=== PATIENT | female | born 1950 | race Caucasian/White ===

== ENCOUNTER 2016-07-14 21:58 | Emergency (ER) | payer OTHER ==
[~2016-07-14] VITALS: Ht 157.5 cm; Wt 43.7 kg
[~2016-07-14 21:58] MED LIST: ADVAIR 100/501 DISK IH; ASPIR-LOW81 MG PO; BACTRIM,SEPT1 TABLET PO; CEFTIN500 MG PO; CLONAZEPAM0.5 MG PO; LO-DOSE ASPIRIN81 M1 PO; NICOTINE PATCH1 EAC2 TD; NITROSTAT0.4 MG SL; PROAIR HFA8.5 GM IH; SIMVASTATIN20 MG PO; TOPROL XL25 MG PO; TYLENOL EXTRA500 MG PO
[2016-07-14 22:02] VITALS: BP 134/79
[2016-07-14 23:26] LABS: ADD MIUA? NO; BILIRUBIN NEGATIVE; BLOOD NEGATIVE; COLOR COLORLESS ((YELLOW)); GLUCOSE (STRIP) NEGATIVE; KETONES NEGATIVE; LEUKOCYTES NEGATIVE; NITRITE NEGATIVE; PROTEIN (STRIP) NEGATIVE; SPECIFIC GRAVITY 1.003 (1.000-1.030); UCUL ADDED? NO; UROBILINOGEN 0.2 MG/DL (0.2-1.0)
[2016-07-14 23:31] LABS: HEMATOCRIT 43.3 % (36.0-46.0); MCH 29.9 PG (29.0-34.0); MCHC 33.5 G/DL (30.0-36.0); MCV 89.3 FL (83-99); MEAN PLAT.VOLUME 10.7 uM^3 (9.5-12.4); PLATELET COUNT 286 K/uL (156-360); RBC DIS.WIDTH-CV 12.6 % (11.8-14.6); RBC DIS.WIDTH-SD 41.3 % (39-53); RED BLOOD COUNT 4.85 M/uL (3.80-5.20); WHITE BLOOD COUNT 8.4 K/uL (4.1-10.2)
[2016-07-14 23:44] LABS: CHLORIDE 106 mEq/L (99-109); POTASSIUM 3.8 mEq/L (3.7-5.4); SODIUM 139 mEq/L (136-147)
[2016-07-14 23:45] LABS: GLUCOSE 81 mg/dL (70-99)
[2016-07-14 23:47] LABS: ANION GAP 9 MEQ/L (2-14)
[2016-07-14 23:49] LABS: GFR ESTIMATE (CALCULATED) > 59 mL/min/
[2016-07-14 23:50] LABS: UREA NITROGEN (BUN) 11 mg/dL (9-23)
[2016-07-14 23:55] LABS: TROP-I INTERPRETATION NEGATIVE; TROPONIN-I < 0.01 ng/mL (0.0-0.30)
== END 2016-07-15 01:12 | disposition left against medical advice (07) ==
LOC: EME → EDBD 21:58 → EME 07-15 01:12
PROVIDERS: Emergency Medicine
PROC: 09QKXZZ Repair Nasal Mucosa and Soft Tissue, External Approach (ICD-10-PCS; principal; 2016-07-14)
DX: S00.83XA Contusion of other part of head, initial encounter (principal); S02.2XXA Fracture of nasal bones, initial encounter for closed fracture; S01.21XA Laceration without foreign body of nose, initial encounter; S40.811A Abrasion of right upper arm, initial encounter; S40.021A Contusion of right upper arm, initial encounter; M54.2 Cervicalgia; W18.39XA Other fall on same level, initial encounter; R42 Dizziness and giddiness; J44.9 Chronic obstructive pulmonary disease, unspecified; F17.200 Nicotine dependence, unspecified, uncomplicated
CPT/HCPCS: 70450; 70486; 72125; 80048; 81003; 84484; 85027; 93005; 99281; 99284

== ENCOUNTER 2017-03-23 22:57 | Emergency (ER) | payer OTHER ==
[~2017-03-23] VITALS: Ht 160 cm; Wt 41.0 kg
[2017-03-23 23:47] LABS: BASOPHIL (%) 0.2 % (0-1); EOSINOPHIL (%) 1.3 % (0-5); EOSINOPHIL COUNT 0.1 K/uL (0-0.3); HEMATOCRIT 42.3 % (36.0-46.0); HEMOGLOBIN 14.5 G/DL (11.9-15.5); IMMATURE GRANULOCYTE (%) 0.1 % (0.0-0.7); LYMPHOCYTE (%) 37.6 % (15-42); LYMPHOCYTE COUNT 3.3 K/uL (1.0-2.8); MCH 30.5 PG (29.0-34.0); MCHC 34.3 G/DL (30.0-36.0); MCV 89.1 FL (83-99); MONOCYTE COUNT 0.5 K/uL (0-0.8); NEUTROPHIL (%) 54.8 % (45-76); NEUTROPHIL COUNT 4.8 K/uL (1.8-6.4); PLATELET COUNT 276 K/uL (156-360); RBC DIS.WIDTH-CV 12.6 % (11.8-14.6); RBC DIS.WIDTH-SD 41.4 % (39-53); RED BLOOD COUNT 4.75 M/uL (3.80-5.20); WHITE BLOOD COUNT 8.8 K/uL (4.1-10.2)
[2017-03-23 23:57] LABS: ALBUMIN 3.8 g/dL (3.2-4.8); CHLORIDE 105 mEq/L (99-109); POTASSIUM 4.1 mEq/L (3.7-5.4); SODIUM 140 mEq/L (136-147)
[2017-03-23 23:59] LABS: GLUCOSE 74 mg/dL (70-99); TOTAL PROTEIN 6.5 g/dL (6.4-8.3)
[2017-03-24 00:01] LABS: TOTAL BILIRUBIN 0.4 mg/dL (0.0-1.0)
[2017-03-24 00:02] LABS: SERUM ETHYL ALCOHOL 210 mg/dL
[2017-03-24 00:03] LABS: ALKALINE PHOSPHATASE 67 IU/L (3-129); CREATININE 0.6 mg/dL (0.6-1.3); GFR ESTIMATE (CALCULATED) > 59 mL/min/
[2017-03-24 00:04] LABS: UREA NITROGEN (BUN) 7 mg/dL (9-23)
[2017-03-24 00:05] LABS: AST (GOT) 47 IU/L (2-34)
[2017-03-24 00:06] LABS: ALT (GPT) 45 IU/L (3-49)
[2017-03-24 00:07] LABS: TROP-I INTERPRETATION NEGATIVE; TROPONIN-I < 0.01 ng/mL (0.0-0.30)
[2017-03-24 00:43] LABS: APPEARANCE CLEAR ((CLEAR)); BILIRUBIN NEGATIVE; BLOOD NEGATIVE; COLOR COLORLESS ((YELLOW)); GLUCOSE (STRIP) NEGATIVE; KETONES NEGATIVE; LEUKOCYTES NEGATIVE; NITRITE NEGATIVE; PROTEIN (STRIP) NEGATIVE; SPECIFIC GRAVITY 1.003 (1.000-1.030); UROBILINOGEN 0.2 MG/DL (0.2-1.0)
[2017-03-24 00:51] LABS: AMPHETAMINE NEGATIVE (500 ng/mL); BARBITURATES NEGATIVE (200 ng/mL); BENZODIAZEPINES NEGATIVE (150 ng/mL); BUPRENORPHINE NEGATIVE (10 ng/mL); COCAINE NEGATIVE (150 ng/mL); METHADONE NEGATIVE (200 ng/mL); METHAMPHETAMINE NEGATIVE (500 ng/mL); OPIATES (MORPHINE) NEGATIVE (100 ng/mL); OXYCODONE NEGATIVE (100 ng/mL); PHENCYCLIDINE NEGATIVE (25 ng/mL); PROPOXYPHENE NEGATIVE (300 ng/mL); THC CANNABINOIDS NEGATIVE (50 ng/mL); TRICYCLIC ANTIDEPRESSANTS NEGATIVE (300 ng/mL)
[2017-03-24] MEDS ORDERED: NORCO 5/3251 TABLET PO (01:59)
[2017-03-24 02:10] VITALS: BP 102/66
== END 2017-03-24 02:39 | disposition home or self-care (01) ==
LOC: EME → EDBD 22:57 → EME 03-24 02:39
PROVIDERS: Emergency Medicine
DX: S16.1XXA Strain of muscle, fascia and tendon at neck level, initial encounter (principal); S20.229A Contusion of unspecified back wall of thorax, initial encounter; S06.9X9A Unspecified intracranial injury with loss of consciousness of unspecified duration, initial encounter; M25.522 Pain in left elbow; M25.531 Pain in right wrist; W18.30XA Fall on same level, unspecified, initial encounter; F10.129 Alcohol abuse with intoxication, unspecified; Y90.7 Blood alcohol level of 200-239 mg/100 ml; J44.9 Chronic obstructive pulmonary disease, unspecified; F17.200 Nicotine dependence, unspecified, uncomplicated
CPT/HCPCS: 70450; 71046; 72125; 72128; 72131; 73080; 73110; 80053; 81003; 84484; 85025; 93005; 99281; 99284; G0480

== ENCOUNTER 2017-05-07 14:51 | Inpatient (IN) | payer OTHER ==
[~2017-05-07] VITALS: Ht 160 cm; Wt 39.8 kg
[~2017-05-07 14:51] MED LIST changes: +NORCO 5/3251 TABLET PO
[2017-05-07 15:49] LABS: HEMATOCRIT 40.2 % (36.0-46.0); HEMOGLOBIN 13.8 G/DL (11.9-15.5); MCH 30.9 PG (29.0-34.0); MCHC 34.3 G/DL (30.0-36.0); MCV 89.9 FL (83-99); PLATELET COUNT 163 K/uL (156-360); RBC DIS.WIDTH-CV 12.8 % (11.8-14.6); RBC DIS.WIDTH-SD 42.5 % (39-53); RED BLOOD COUNT 4.47 M/uL (3.80-5.20); WHITE BLOOD COUNT 10.3 K/uL (4.1-10.2)
[2017-05-07 15:58] LABS: PTT 27.8 SEC (25-37)
[2017-05-07 16:08] LABS: ALBUMIN 3.4 g/dL (3.2-4.8)
[2017-05-07 16:09] LABS: CHLORIDE 100 mEq/L (99-109); POTASSIUM 3.7 mEq/L (3.7-5.4); SODIUM 135 mEq/L (136-147)
[2017-05-07 16:11] LABS: GLUCOSE 109 mg/dL (70-99)
[2017-05-07 16:13] LABS: TOTAL BILIRUBIN 0.5 mg/dL (0.0-1.0)
[2017-05-07 16:14] LABS: ALKALINE PHOSPHATASE 63 IU/L (3-129)
[2017-05-07 16:15] LABS: CREATININE 0.7 mg/dL (0.6-1.3); GFR ESTIMATE (CALCULATED) > 59 mL/min/
[2017-05-07 16:16] LABS: AST (GOT) 36 IU/L (2-34); UREA NITROGEN (BUN) 9 mg/dL (9-23)
[2017-05-07 16:17] LABS: ALT (GPT) 27 IU/L (3-49)
[2017-05-07 16:19] LABS: TROP-I INTERPRETATION NEGATIVE; TROPONIN-I < 0.01 ng/mL (0.0-0.30)
[2017-05-07 19:49] LABS: TROP-I INTERPRETATION NEGATIVE; TROPONIN-I < 0.01 ng/mL (0.0-0.30)
[2017-05-07] MEDS ORDERED: LO-DOSE ASPIRIN81 M2 PO (20:54)
[2017-05-07] MEDS ORDERED: VENTOLIN HFA18 GM IH (20:56)
[2017-05-07] MEDS ORDERED: PRAVASTATIN SOD20 MG PO (20:56)
[2017-05-07] MEDS ORDERED: HYDROCODON-ACE1 EAC7 PO (20:56)
[2017-05-07] MEDS ORDERED: LEVOTHYROXINE100 MCG PO (20:56)
[2017-05-07] MEDS ORDERED: SYMBICORT60 INHALAT IH (20:57)
[2017-05-07] MEDS ORDERED: SERTRALINE HCL50 MG PO (20:57)
[2017-05-07] MEDS ORDERED: ADVIL,NUPRIN,M200 MG PO (20:58)
[2017-05-07] MEDS ORDERED: CALCIUM600 M1 PO (20:59)
[2017-05-07] MEDS ORDERED: VITAMIN D-3 401 EACH PO (21:01)
[2017-05-07 22:23] LABS: MAGNESIUM 1.5 mg/dL (1.3-2.7)
[2017-05-07 22:27] LABS: SERUM ETHYL ALCOHOL < 10 mg/dL
[2017-05-07 22:40] LABS: APPEARANCE CLEAR ((CLEAR)); BILIRUBIN NEGATIVE; BLOOD NEGATIVE; COLOR YELLOW ((YELLOW)); GLUCOSE (STRIP) 50; KETONES 5; LEUKOCYTES NEGATIVE; NITRITE NEGATIVE; PROTEIN (STRIP) NEGATIVE; SPECIFIC GRAVITY 1.056 (1.000-1.030); UCUL ADDED? NO; UROBILINOGEN 0.2 MG/DL (0.2-1.0)
[2017-05-07 22:57] VITALS: BP 120/65
[2017-05-08 02:58] VITALS: BP 109/55
[2017-05-08 05:55] LABS: HEMATOCRIT 39.6 % (36.0-46.0); HEMOGLOBIN 13.2 G/DL (11.9-15.5); MCH 30.1 PG (29.0-34.0); MCHC 33.3 G/DL (30.0-36.0); MCV 90.2 FL (83-99); PLATELET COUNT 164 K/uL (156-360); RBC DIS.WIDTH-CV 12.9 % (11.8-14.6); RBC DIS.WIDTH-SD 42.9 % (39-53); RED BLOOD COUNT 4.39 M/uL (3.80-5.20); WHITE BLOOD COUNT 10.1 K/uL (4.1-10.2)
[2017-05-08 06:13] LABS: TROP-I INTERPRETATION NEGATIVE; TROPONIN-I < 0.01 ng/mL (0.0-0.30)
[2017-05-08 06:16] LABS: CHLORIDE 103 MEQ/L (99-109); CREATININE 0.5 MG/DL (0.6-1.3); GFR ESTIMATE (CALCULATED) > 59 mL/min/; GLUCOSE 117 mg/dL (70-99); POTASSIUM 4.3 MEQ/L (3.7-5.4); SODIUM 137 MEQ/L (136-147); UREA NITROGEN (BUN) 6 mg/dL (9-23)
[2017-05-08 06:57] LABS: BASOPHIL (%) 0.1 % (0-1); EOSINOPHIL (%) 0 % (0-5); IMMATURE GRANULOCYTE (%) 0.4 % (0.0-0.7); LYMPHOCYTE (%) 8.6 % (15-42); LYMPHOCYTE COUNT 0.9 K/uL (1.0-2.8); MONOCYTE COUNT 0.3 K/uL (0-0.8); NEUTROPHIL (%) 87.9 % (45-76); NEUTROPHIL COUNT 8.9 K/uL (1.8-6.4)
[2017-05-08 07:16] VITALS: BP 109/62
[2017-05-08 10:39] LABS: TROP-I INTERPRETATION NEGATIVE; TROPONIN-I < 0.01 ng/mL (0.0-0.30)
[2017-05-08 10:48] VITALS: BP 108/60
[2017-05-08 15:26] VITALS: BP 115/58
[2017-05-08 19:53] VITALS: BP 114/55
[2017-05-08 23:41] VITALS: BP 139/67
[2017-05-09 04:12] VITALS: BP 113/57
[2017-05-09 06:09] LABS: HEMATOCRIT 34.9 % (36.0-46.0); HEMOGLOBIN 11.7 G/DL (11.9-15.5); MCH 30.2 PG (29.0-34.0); MCHC 33.5 G/DL (30.0-36.0); MCV 89.9 FL (83-99); PLATELET COUNT 191 K/uL (156-360); RBC DIS.WIDTH-CV 13.1 % (11.8-14.6); RBC DIS.WIDTH-SD 43.1 % (39-53); RED BLOOD COUNT 3.88 M/uL (3.80-5.20); WHITE BLOOD COUNT 13.4 K/uL (4.1-10.2)
[2017-05-09 07:28] VITALS: BP 114/66
[2017-05-09 11:19] VITALS: BP 104/53
[2017-05-09 16:34] VITALS: BP 115/56
[2017-05-09 23:31] VITALS: BP 114/59
[2017-05-10 04:30] VITALS: BP 113/61
[2017-05-10 06:15] LABS: HEMATOCRIT 34.6 % (36.0-46.0); HEMOGLOBIN 11.3 G/DL (11.9-15.5); MCH 29.7 PG (29.0-34.0); MCHC 32.7 G/DL (30.0-36.0); MCV 90.8 FL (83-99); PLATELET COUNT 243 K/uL (156-360); RBC DIS.WIDTH-CV 13.2 % (11.8-14.6); RBC DIS.WIDTH-SD 43.8 % (39-53); RED BLOOD COUNT 3.81 M/uL (3.80-5.20); WHITE BLOOD COUNT 13.1 K/uL (4.1-10.2)
[2017-05-10 09:40] VITALS: BP 121/56
[2017-05-10 12:46] VITALS: BP 124/60
[2017-05-10 16:38] VITALS: BP 136/65
[2017-05-10 19:00] VITALS: BP 132/67
[2017-05-11 00:35] VITALS: BP 144/71
[2017-05-11 04:34] VITALS: BP 146/77
[2017-05-11 07:01] VITALS: BP 137/83
[2017-05-11] MEDS ORDERED: PREDNISONE10 MG PO (11:50)
[2017-05-11] MEDS ORDERED: THERAGRAN1 TABLET PO (11:50)
[2017-05-11] MEDS ORDERED: FLORASTOR250 MG PO (11:50)
[2017-05-11] MEDS ORDERED: SPIRIVA1 INHALATI IH (11:50)
[2017-05-11] MEDS ORDERED: DUONEB 2.5-0.5 M3 ML AEROSOL (11:50)
[2017-05-11] MEDS ORDERED: LEVAQUIN750 MG PO (11:53)
== END 2017-05-11 16:40 | disposition home health service (06) | DRG 177 ==
LOC: EME 14:51 → EDOF 20:43 → 5EAST 20:43 → ENRESERV 20:45 → 5EAST 22:42 → ENPENDDIS 05-11 → 5EAST 05-11 16:40
PROVIDERS: Hospitalist; Internal Medicine; Physician Assistant
DX: J69.0 Pneumonitis due to inhalation of food and vomit (principal); J96.01 Acute respiratory failure with hypoxia; J44.0 Chronic obstructive pulmonary disease with (acute) lower respiratory infection; J20.9 Acute bronchitis, unspecified; J44.1 Chronic obstructive pulmonary disease with (acute) exacerbation; E87.1 Hypo-osmolality and hyponatremia; E78.00 Pure hypercholesterolemia, unspecified; G40.909 Epilepsy, unspecified, not intractable, without status epilepticus; I10 Essential (primary) hypertension; I25.10 Atherosclerotic heart disease of native coronary artery without angina pectoris; F41.9 Anxiety disorder, unspecified; R91.1 Solitary pulmonary nodule; D18.03 Hemangioma of intra-abdominal structures; F17.200 Nicotine dependence, unspecified, uncomplicated; Q45.3 Other congenital malformations of pancreas and pancreatic duct; I25.2 Old myocardial infarction; Z88.0 Allergy status to penicillin
CPT/HCPCS: 71045; 71046; 71275; 80048; 80053; 81003; 83605; 83735; 84484; 85025; 85027; 85379; 85610; 85730; 87040; 87070; 87205; 87449; 87493; 87502; 87641; 93005; 94640; 94640 76; 94760; 94799; 97530 GP; 99202; 99281; 99285; G0480; J0295; J0456; J0692; J1650; J2270; J2930; J7030; J7050

== ENCOUNTER 2017-08-05 17:13 | Emergency (ER) | payer OTHER ==
[~2017-08-05] VITALS: Ht 157.5 cm; Wt 44.2 kg
[~2017-08-05 17:13] MED LIST changes: +ADVIL,NUPRIN,M200 MG PO; +CALCIUM600 M1 PO; +DUONEB 2.5-0.5 M3 ML AEROSOL; +FLORASTOR250 MG PO; +HYDROCODON-ACE1 EAC7 PO; +LEVAQUIN750 MG PO; +LEVOTHYROXINE100 MCG PO; +LO-DOSE ASPIRIN81 M2 PO; +PRAVASTATIN SOD20 MG PO; +PREDNISONE10 MG PO; +SERTRALINE HCL50 MG PO; +SPIRIVA1 INHALATI IH; +SYMBICORT60 INHALAT IH; +THERAGRAN1 TABLET PO; +VENTOLIN HFA18 GM IH; +VITAMIN D-3 401 EACH PO
[2017-08-05 18:46] LABS: HEMATOCRIT 38.5 % (36.0-46.0); HEMOGLOBIN 13.2 G/DL (11.9-15.5); MCH 29.9 PG (29.0-34.0); MCHC 34.3 G/DL (30.0-36.0); MCV 87.3 FL (83-99); PLATELET COUNT 268 K/uL (156-360); RBC DIS.WIDTH-CV 13.1 % (11.8-14.6); RBC DIS.WIDTH-SD 41.9 % (39-53); RED BLOOD COUNT 4.41 M/uL (3.80-5.20); WHITE BLOOD COUNT 14.4 K/uL (4.1-10.2)
[2017-08-05 18:56] LABS: CHLORIDE 99 mEq/L (99-109); POTASSIUM 4.3 mEq/L (3.7-5.4); SODIUM 135 mEq/L (136-147)
[2017-08-05 18:58] LABS: GLUCOSE 133 mg/dL (70-99)
[2017-08-05 19:02] LABS: CREATININE 0.7 mg/dL (0.6-1.3); GFR ESTIMATE (CALCULATED) > 59 mL/min/
[2017-08-05 19:03] LABS: UREA NITROGEN (BUN) 11 mg/dL (9-23)
[2017-08-05 19:07] LABS: TROP-I INTERPRETATION NEGATIVE; TROPONIN-I 0.01 ng/mL (0.0-0.30)
[2017-08-05] MEDS ORDERED: PREDNISONE50 MG PO (19:48)
[2017-08-05 20:20] VITALS: BP 142/77
== END 2017-08-05 20:25 | disposition home or self-care (01) ==
LOC: EME 17:13
PROVIDERS: Emergency Medicine
DX: J44.9 Chronic obstructive pulmonary disease, unspecified (principal); R05 Cough; I45.10 Unspecified right bundle-branch block; Z79.82 Long term (current) use of aspirin; Z88.2 Allergy status to sulfonamides; Z87.891 Personal history of nicotine dependence
CPT/HCPCS: 71046; 80048; 84484; 85027; 93005; 94640; 99281; 99284; J7512

== ENCOUNTER 2017-10-01 16:53 | Observation (INO) | payer OTHER ==
[~2017-10-01] VITALS: Ht 157.5 cm; Wt 44.1 kg
[~2017-10-01 16:53] MED LIST changes: +PREDNISONE50 MG PO
[2017-10-01 18:00] LABS: HEMATOCRIT 40.6 % (36.0-46.0); HEMOGLOBIN 13.7 G/DL (11.9-15.5); MCH 30.2 PG (29.0-34.0); MCHC 33.7 G/DL (30.0-36.0); MCV 89.4 FL (83-99); PLATELET COUNT 284 K/uL (156-360); RBC DIS.WIDTH-CV 12.7 % (11.8-14.6); RED BLOOD COUNT 4.54 M/uL (3.80-5.20); WHITE BLOOD COUNT 7.2 K/uL (4.1-10.2)
[2017-10-01 18:20] LABS: CHLORIDE 105 mEq/L (99-109); SODIUM 140 mEq/L (136-147)
[2017-10-01 18:21] LABS: GLUCOSE 102 mg/dL (70-99)
[2017-10-01 18:25] LABS: CREATININE 0.9 mg/dL (0.6-1.3); GFR ESTIMATE (CALCULATED) > 59 mL/min/
[2017-10-01 18:26] LABS: UREA NITROGEN (BUN) 18 mg/dL (9-23)
[2017-10-01 18:31] LABS: TROP-I INTERPRETATION NEGATIVE; TROPONIN-I < 0.01 ng/mL (0.0-0.30)
[2017-10-01] MEDS ORDERED: SERTRALINE HCL50 MG PO (19:21)
[2017-10-01] MEDS ORDERED: SYNTHROID100 MCG PO (19:22)
[2017-10-01] MEDS ORDERED: SPIRIVA RESPIMAT4 GM IH (19:24)
[2017-10-01 21:32] VITALS: BP 132/65
[2017-10-02 00:01] VITALS: BP 136/76
[2017-10-02 01:02] LABS: TROP-I INTERPRETATION NEGATIVE; TROPONIN-I < 0.01 ng/mL (0.0-0.30)
[2017-10-02 05:11] VITALS: BP 112/61
[2017-10-02 06:22] LABS: HEMATOCRIT 40.8 % (36.0-46.0); HEMOGLOBIN 13.5 G/DL (11.9-15.5); MCH 29.6 PG (29.0-34.0); MCHC 33.1 G/DL (30.0-36.0); MCV 89.5 FL (83-99); PLATELET COUNT 274 K/uL (156-360); RBC DIS.WIDTH-CV 12.8 % (11.8-14.6); RED BLOOD COUNT 4.56 M/uL (3.80-5.20); WHITE BLOOD COUNT 4.7 K/uL (4.1-10.2)
[2017-10-02 06:45] LABS: ALBUMIN 3.8 G/DL (3.2-4.8); ALKALINE PHOSPHATASE 54 IU/L (3-129); ALT (GPT) 16 IU/L (3-49); AST (GOT) 18 IU/L (2-34); CHLORIDE 106 MEQ/L (99-109); CREATININE 0.5 MG/DL (0.6-1.3); DIRECT BILIRUBIN 0.1 mg/dL (0.0-0.3); GFR ESTIMATE (CALCULATED) > 59 mL/min/; LIPASE 16 U/L (1.0-51.0); POTASSIUM 4.3 MEQ/L (3.7-5.4); SODIUM 141 MEQ/L (136-147); TOTAL BILIRUBIN 0.5 MG/DL (0.0-1.0); TOTAL PROTEIN 5.7 G/DL (6.4-8.3); UREA NITROGEN (BUN) 16 mg/dL (9-23)
[2017-10-02 06:48] LABS: GLUCOSE 175 mg/dL (70-99)
[2017-10-02 06:50] LABS: TROP-I INTERPRETATION NEGATIVE; TROPONIN-I < 0.01 ng/mL (0.0-0.30)
[2017-10-02 08:00] VITALS: BP 117/73
[2017-10-02] MEDS ORDERED: PREDNISONE20 MG PO (11:02)
[2017-10-02 12:03] VITALS: BP 112/69
== END 2017-10-02 13:15 | disposition home or self-care (01) ==
LOC: EME 16:53 → 4SOUTH 20:23 → EDOF 20:23 → 4SOUTH 21:14
PROVIDERS: Hospitalist
PROC: B246ZZZ Ultrasonography of Right and Left Heart (ICD-10-PCS; principal; 2017-10-02)
DX: J44.1 Chronic obstructive pulmonary disease with (acute) exacerbation (principal); R07.9 Chest pain, unspecified; F17.210 Nicotine dependence, cigarettes, uncomplicated; R63.4 Abnormal weight loss; R91.1 Solitary pulmonary nodule; I25.10 Atherosclerotic heart disease of native coronary artery without angina pectoris; G40.909 Epilepsy, unspecified, not intractable, without status epilepticus; D18.03 Hemangioma of intra-abdominal structures; Z82.49 Family history of ischemic heart disease and other diseases of the circulatory system; Z88.2 Allergy status to sulfonamides
CPT/HCPCS: 71046; 80048; 80076; 83690; 84484; 85027; 85379; 93005; 93306; 94640; 94799; 99281; 99285; G0378; J1650; J7512